=== PATIENT | male | born 1950 | race Caucasian/White ===

== ENCOUNTER → 2019-04-28 | Outpatient (CLI) | payer MEDICARE, OTHER ==
--- NOTE | 2019-04-30 22:30 | CTL ---
EXAMINATION TYPE: CT Low Dose Lung DATE OF EXAM ORDERED: 04/28/2019 HISTORY: Personal history tobacco use. Lung cancer screening CT DLP: 156.[address] CTDI: 7.8 mGy Automated exposure control for dose reduction was used. SCREENING VISIT: Initial study COMPARISON: 2 view chest x-ray February 16, 2017 TECHNIQUE: Low dose computed tomography scan was performed through the chest at 1 mm thick sections a nd reconstructed images in the coronal plane at [address] DIAGNOSTIC QUALITY: Satisfactory FINDINGS: LUNG NODULES: Present, detailed below: Multiple tiny noncalcified nodules throughout the bilateral lung parenchyma, right more numerous than left. Largest nodule I measure is 5 x 4 mm subpleural inferior medial right upper lobe nodule axial image 151. Multiple larger but calcified nodules throughout the left lung parenchyma including some clustered no dules. LUNGS: COPD: Severity: None. Fibrosis: Severity: Mild. Lymph nodes: None. Other findings: None. BILATERAL PLEURAL SPACE: Effusion: None. Calcification: None. Thickening: None. Pneumothorax: None. Elevated left hemidiaphragm noted. HEART: Heart Size: Normal Coronary calcification: Severe Pericardial effusion: Trace OTHER FINDINGS: Upper abdomen: None. Bony thorax: Moderate multilevel spurring. Supraclavicular region: None. Other: None. IMPRESSION: Evidence of old granulomatous disease. Scattered tiny noncalcified nodules measuring up t o [address] CHEST RECOMMENDATION: Annual low-dose lung screening CT CT LUNG RAD: Lung-Rad 2 Benign Appearance or Behavior There is note made of severe three-vessel coronary artery calcification which is noted marker for und erlying coronary artery disease. Correlate clinically for additional cardiac risk factors.
== END | disposition home or self-care (01) ==
LOC: RADCTMAIN 16:10
PROVIDERS: ATTEND Family Medicine
DX: Z12.2 Encounter for screening for malignant neoplasm of respiratory organs (principal); D71 Functional disorders of polymorphonuclear neutrophils; R91.1 Solitary pulmonary nodule; F17.210 Nicotine dependence, cigarettes, uncomplicated

== ENCOUNTER → 2020-02-27 | Outpatient (CLI) | payer MEDICARE, OTHER | END | disposition home or self-care (01) | LOC: LABWHC1 13:46 | PROVIDERS: ATTEND Family Medicine | DX: Z03.818 Encounter for observation for suspected exposure to other biological agents ruled out (principal) ==

== ENCOUNTER → 2022-10-02 | Outpatient (CLI) | payer MEDICARE, OTHER ==
--- NOTE | 2022-10-02 15:32 | CTL ---
EXAMINATION TYPE: CT Low Dose Lung DATE OF EXAM ORDERED: 10/02/2022 HISTORY: . Lung cancer screening CT DLP: 143.[address] CTDI: 4.10 mGy Automated exposure control for dose reduction was used. SCREENING VISIT: COMPARISON: TECHNIQUE: Low dose computed tomography scan was performed through the chest at 1 mm thick sections a nd reconstructed images in the coronal plane at [address] DIAGNOSTIC QUALITY: Satisfactory FINDINGS: LUNG NODULES: Present, detailed below: 1. A 0.6 cm nodule within the anterior lateral left upper lung field. There is an adjacent 0.5 cm ova l nodule medial same level. Series 4 image 81. 2. There is a punctate peripheral nodule measuring 0.2 cm adjacent to the mediastinal border. Series 4 image 92. This is smaller than comparison. 3. There is a 0.9 cm calcific type density along the mediastinal border. A smaller 0.4 cm nodule whic h appears calcified is present as well. Series 4 image 109. 4. There is a complex collection within the left midlung. Series 4 image 120. 5. Couple of small nodules are adjacent to the major fissure on the left. Series 4 image 120. 6. There is a lobular 1.5 x 1.0 cm nodule in the anterior mid left lung. Series 4 image 128. 7. There is a 1.8 cm lobular calcification within the lingula. Series 4 image 141. LUNGS: COPD: Severity: None Fibrosis: Severity: None Lymph nodes: None Other findings: None RIGHT PLEURAL SPACE: Effusion: None Calcification: None Thickening: None Pneumothorax: None LEFT PLEURAL SPACE: Effusion: None Calcification: Couple of calcifications are adjacent to the pleural margin described under nodules ab ove. Thickening: None Pneumothorax: None HEART: Heart Size: Normal Coronary calcification: Moderate Pericardial effusion: None OTHER FINDINGS: Upper abdomen: Normal Bony thorax: Normal Supraclavicular region: Normal Other: Ascending thoracic aorta at the level the main pulmonary artery measures 3.7 cm. The main pul monary artery at the bifurcation measures 2.6 cm. IMPRESSION: Multiple bilateral lung nodules, some which contain calcification. Views appears stable f rom comparison FOLLOW UP CT CHEST RECOMMENDATION: Follow-up low-dose CT chest [address] LUNG RAD: Lung-Rad 2 Benign Appearance or Behavior
== END | disposition home or self-care (01) ==
LOC: RADCTMAIN 14:24
PROVIDERS: ATTEND Family Medicine
DX: Z12.2 Encounter for screening for malignant neoplasm of respiratory organs (principal); R91.8 Other nonspecific abnormal finding of lung field; Z87.891 Personal history of nicotine dependence
CPT/HCPCS: 71271

== ENCOUNTER → 2024-03-20 | Outpatient (CLI) | payer MEDICARE ==
--- NOTE | 2024-03-20 20:43 | CTL ---
EXAMINATION TYPE: CT Low Dose Lung DATE OF EXAM ORDERED: 03/20/2024 HISTORY: 73-year-old male Z1 2.2, lung cancer screening, F17.210, current smoker with 60 pack-year hi story. Lung cancer screening CT DLP: 97.[address] CTDI: 2.6 mGy Automated exposure control for dose reduction was used. SCREENING VISIT: Annual follow-up COMPARISON: 10/02/2022 TECHNIQUE: Low dose computed tomography scan was performed through the chest at 1 mm thick sections a nd reconstructed images in multiple planes at 1 mm and [address] DIAGNOSTIC QUALITY: Satisfactory FINDINGS: Heart normal size without pericardial effusion. Extensive three-vessel coronary calcifications are pr esent. Borderline ectatic aortic root at 3.6 cm. Mild atherosclerotic arch calcifications. Conventional arch vessel branching anatomy. No thoracic lymphadenopathy by CT size criteria. Moderate diffuse bronchial wall thickening. Mild emphysematous change. Numerous scattered 8 mm and smaller bilateral pulmonary nodules. Some of the largest nodules are calc ified measuring up to 2.1 cm suggesting sequela of prior granulomatous disease. Strandy interstitial scarring posterior right lower lobe. No consolidation or pleural effusion. Visualized upper abdomen shows no gross abnormality. Bones: Spinal stimulator array centered along the mid to lower thoracic spinal canal. DISH within the thoracic spine. IMPRESSION: 1. LungRADS 2, benign; stable scattered 8 mm and smaller pulmonary nodules and additional evidence of prior granulomatous disease. 2. 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 Recommend smoking cessation. 3. Extensive three-vessel coronary artery calcifications. CT LUNG RAD AND CT CHEST RECOMMENDATION: Lung-Rad 2 Benign Appearance or Behavior: Continue annual sc reening with LDCT in 12 months. S Modifier (other clinically significant findings): None
== END | disposition home or self-care (01) ==
LOC: RADCTMAIN 12:06
PROVIDERS: ATTEND Family Medicine
DX: Z12.2 Encounter for screening for malignant neoplasm of respiratory organs (principal); J44.9 Chronic obstructive pulmonary disease, unspecified; J43.9 Emphysema, unspecified; I25.10 Atherosclerotic heart disease of native coronary artery without angina pectoris; R91.8 Other nonspecific abnormal finding of lung field; J84.10 Pulmonary fibrosis, unspecified; F17.210 Nicotine dependence, cigarettes, uncomplicated
CPT/HCPCS: 71271